=== PATIENT | male | born 1950 ===

== ENCOUNTER 2017-02-09 01:39 | Day surgery (SDC) | payer OTHER ==
[2017-02-09] VITALS (12 sets, daily range): BP systolic 111–139; BP diastolic 59–88
[~2017-02-09] VITALS: Ht 162.6 cm; Wt 73.0 kg
[~2017-02-09 01:39] MED LIST: ASPI81TA94 PO; ATOR40TA24 PO; CYCL10TA29 PO; FLUO-201 PO; GABA-549 PO; HYDR-4309 PO; METF-420 PO; SITA100T PO; TRAM-627 PO
[2017-02-09] MEDS ORDERED: LIDOCAINE/SOD BICARB 8.4% SYR ID ONE (06:00)
[2017-02-09] MEDS ORDERED: ceFAZolin(*) 2GM/D5W 50ML 50 ML IVPB ONE ×2 (06:00→12:15)
[2017-02-09] MEDS ORDERED: FAMOTIDINE 20 MG TAB PO ONE (06:00)
[2017-02-09] MEDS ORDERED: NORMOSOL R SOLN(*) 1000 ML BAG 1,000 ML IV PRN (06:00)
[2017-02-09] MEDS ORDERED: MIDAZOLAM 2 MG/2 ML VIAL IVP ONE (06:00)
[2017-02-09] MEDS ORDERED: fentaNYL CITR 250 MCG/5 ML AMP ONE (07:59)
[2017-02-09] MEDS ORDERED: PROPOFOL EMUL(*) 10MG/ML 20 ML 20 ML ONE (07:59)
[2017-02-09] MEDS ORDERED: ROCURONIUM BROM 10 MG/ML 10 ML ONE (07:59)
[2017-02-09] MEDS ORDERED: DEXAMETHASONE SOD 4 MG/ML VIAL ONE (07:59)
[2017-02-09] MEDS ORDERED: SUGAMMADEX SOD 200 MG/2 ML SDV ONE (07:59)
[2017-02-09] MEDS ORDERED: ONDANSETRON 4 MG/2 ML VIAL ONE (07:59)
[2017-02-09] MEDS ORDERED: LIDOCAINE MPF 1% 5 ML VIAL ONE (07:59)
[2017-02-09] MEDS ORDERED: BUPIVACAIN 0.25% INJ 50ML VIAL ONE (08:16)
[2017-02-09] MEDS ORDERED: THROMBIN (BOVINE) 20,000 UNIT VIAL ONE (08:16)
[2017-02-09] MEDS ORDERED: DEXAMETHASONE SOD 20MG/5 ML VL ONE (10:33)
--- NOTE | 2017-02-09 10:35 | RADIOLOGY IMAGING REPORT ---
[place] [facility] [place] Emery Guillory : 1950 MR: [id number] V: [id number] EXAM DATE: ORDERING PHYSICIAN: BERNA XIAO TECHNOLOGIST: Location: [facility] [place] Patient: Emery Guillory : 1950 Visit/Account:[id number] Date of Sevice: 02/09/2017 Exam type: LUMBAR SPINE 1 VIEW History: LUMBAR DISC HERNIATION L5-S1 Comparison: [place] lumbar spine November 23, 2016. Findings: A single prone crosstable lateral intraoperative view of the lower lumbar spine demonstrates metallic probes projecting between the posterior spinous processes of L3 and L4 and L4 and L5 IMPRESSION: 1. As above Report Dictated By: Patrizia Carlson MD at 02/09/2017 10:29 AM Report E-Signed By: Patrizia Carlson MD at 02/09/2017 10:31 AM WSN:[id number]
[2017-02-09] MEDS ORDERED: oxyCODONE HCL 5 MG CAP PO PRN (11:40)
[2017-02-09] MEDS ORDERED: BENZOCAINE/MENTHOL 1 EACH LOZG PO PRN (11:40)
[2017-02-09] MEDS ORDERED: diphenhydrAMINE 25 MG CAP PO PRN (11:40)
[2017-02-09] MEDS ORDERED: HYDROmorphone HCL 2 MG/ML SDV IVP PRN (11:40)
[2017-02-09] MEDS ORDERED: ONDANSETRON 4 MG/2 ML VIAL IVP PRN (11:40)
[2017-02-09] MEDS ORDERED: ACETAMINOPHEN 500 MG TAB PO PRN (11:40)
[2017-02-09] MEDS ORDERED: BISACODYL 10 MG SUPP PR PRN (11:40)
[2017-02-09] MEDS ORDERED: FLUSH 10 ML SYR IVP PRN (11:40)
[2017-02-09] MEDS ORDERED: ACETAMINOPHEN(*)1000 MG/100 ML 100 ML IVPB PRN (11:40)
[2017-02-09] MEDS ORDERED: APAP/HYDROCODONE 325/5 TAB PO PRN (11:40)
[2017-02-09] MEDS ORDERED: MAGNESIUM HYDROXIDE* 30ML UDCP PO PRN (11:40)
[2017-02-09] MEDS ORDERED: DIAZEPAM 5 MG TAB PO PRN (11:40)
[2017-02-09] MEDS ORDERED: DOCU240C84 PO (12:13)
[2017-02-09] MEDS ORDERED: DIA5 PO (12:14)
[2017-02-09] MEDS ORDERED: OXYC-865 PO (12:18)
[2017-02-09] MEDS ORDERED: oxyCODONE/ACETAMIN 5/325MG TH 2 TAB/BOTTLE ONE (13:47)
--- NOTE | 2017-02-09 16:04 | OPERATIVE REPORT 1 ---
EVENT DATE: February 09, 2017 SURGEON: Torito Alex MD ANESTHESIOLOGIST: Usman Hansen MD ANESTHESIA: General endotracheal anesthesia. BEER MERCHANT: MIC Hurst PREOPERATIVE DIAGNOSIS Left greater than right S1 radicular symptoms secondary to spinal stenosis. POSTOPERATIVE DIAGNOSIS Left greater than right S1 radicular symptoms secondary to spinal stenosis. PROCEDURE PERFORMED Bilateral L5-S1 laminoforaminotomy and lateral recess decompression. INTRAVENOUS FLUIDS 800 mL ESTIMATED BLOOD LOSS 25 mL IMPLANTS USED None. SPECIMENS None. DRAINS None. COMPLICATIONS None. DISPOSITION Postanesthesia care unit. INDICATIONS FOR SURGERY Mr. Guillory is a 66-year-old gentleman who presented with left greater than right radiating pain, numbness, and tingling down the posterior buttock, posterior thigh, posterior calf, and into the lateral and plantar aspects of the foot. He had had significant complications with previous injection therapy and had also failed physical therapy, activity modifications, and medication. His physical examination was essentially normal apart from a straight leg raising test being positive on the left and equivocal on the right. His imaging studies showed lateral recess and foraminal narrowing at the L5-S1 level , left greater than right. Secondary to ongoing symptoms, he was offered and elected to undergo bilateral L5-S1 laminoforaminotomy. Prior to surgery, I explained in detail to the patient the possible risks of surgery, including the risk of nerve injury, persistent and/or worsening pain, spinal fluid leak, infection and/or meningitis, excessive bleeding, paralysis, , blindness, sexual dysfunction, autonomic nervous system dysfunction, blood vessel injury, injury to neighboring organs, need for further surgery, bowel and bladder dysfunction, disability, unforeseen medical and surgical complications, and understanding in general spinal surgery is more predictive of improving extremity discomfort than axial spine pain and arresting the progression of spinal cord dysfunction rather than improving it with stress. DESCRIPTION OF OPERATION On the date of surgery, the patient was met in the preoperative hold area, and all questions were answered. The operative site was identified and marked by myself. The patient was then taken to the operating room, and after identification of the patient and the operative site, administration of antibiotics, and completion of anesthesia, the patient was prepped and draped in the prone position on a Pranav table. During the time of the entire operation, care was taken to maintain appropriate perfusion pressures during anesthesia. All bony protuberances and soft tissues were well padded in the standard fashion. Preoperative antibiotics were administered according to the appropriate timing schedule. At the conclusion of the procedure, the sponge and needle counts were correct times two. The skin was prepped with DuraPrep. An 18-gauge spinal needle was placed on the L5 spinous process with a 20-gauge spinal needle placed on the L4 spinous process. A lateral radiograph confirmed appropriate positioning of the needles. The needles were then withdrawn, and the wound was prepped and draped again in the standard sterile orthopedic fashion. A final timeout was undertaken by members of the operating team to confirm correct patient, correct level, and correct surgery. An incision was then made in the skin over the intended surgical levels, and dissection carried down through the subcutaneous tissue to the level of the deep fascia. The deep fascia was elevated off the posterior elements at L5 and S1 in a subperiosteal manner. On the left side at the L5-S1 level, a Goldberg retractor was placed. A curette was used to remove in a subperiosteal manner the attachment of the ligamentum flavum from the undersurface of the superior lamina. The ligamentum flavum was dissected free of its attachment to the pars interarticularis, the medial articular facet, and the inferior lamina. Minimal bone was removed using a 3 mm Kerrison punch to expose the lateral dura and traversing nerve root as well as to allow palpation of the pedicle and neural foramen. The shoulder of the traversing nerve root was mobilized, and the lateral recess was decompressed using a 3 mm Kerrison punch. A foraminotomy was similarly performed. A [place] elevator was used to ensure that the S1 nerve root was completely decompressed both in the lateral recess and the foramen. Attention was then turned to the right side. A Goldberg retractor was placed at L5-S1 on the right, and again a curette was used to remove the ligamentum flavum from the superior inferior lamina as well as the medial border of the facet. The nerve root was mobilized, and the 3.0 Kerrison punch was used to decompress the lateral recess and the foramen on the right. Meticulous hemostasis was obtained. We then placed 0.5 mL of Decadron for a total of 2 mg in the laminoforaminotomy defect both on the right and the left. The nerve was bathed in the steroid. The wound was then closed in layers using interrupted sutures for the deep fascia, inverted interrupted sutures for the subcutaneous tissue, and then a running subcuticular skin stitch. Sponge and instrument counts were correct times two. POSTOPERATIVE CARE PLAN Mr. Guillory will remain in the hospital until he meets discharge criteria later today. He will then be discharged home with instructions to follow up in two weeks' time for wound check and examination. LADAN
[2017-02-09] MEDS ORDERED: DOCUSATE SODIUM 100 MG CAP PO SCH (21:00)
== END 2017-02-09 11:57 | disposition home or self-care (01) ==
LOC: OR 01:39
PROVIDERS: ATTEND Orthopaedic Surgery
DX: M48.07 Spinal stenosis, lumbosacral region (principal); E11.9 Type 2 diabetes mellitus without complications
CPT/HCPCS: 36415; 36416; 63047; 72020; 82948; 86850; 86900; 86901; 94667; 97161; J1100; J2001; J2250; J2405; J2704; J3010; J3490; J0690

== ENCOUNTER 2018-06-11 00:51 | Inpatient (IN) | payer MEDICARE, BC ==
[2018-06-11] VITALS (13 sets, daily range): BP systolic 88–101; BP diastolic 56–65; Ht 165.1 cm; Wt 74.8 kg
[~2018-06-11] VITALS: Ht 165.1 cm; Wt 74.8 kg
[~2018-06-11 00:51] MED LIST changes: +DIA5 PO; +DOCU240C84 PO; -HYDR-4309 PO; +HYDR-653 PO; -METF-420 PO; +METF-452 PO; +OXYC-865 PO
--- NOTE | 2018-06-11 01:07 | ER Report ---
History and Physical Time Seen By MD: 01:07 Hx. of Stated Complaint: WEAKNESS AND FEVER STARTING THIS AFTERNOON HPI/ROS CHIEF COMPLAINT: fever and weakness HISTORY OF PRESENT ILLNESS: This is a 67 year old male. He has been having fevers this evening and has been having chills all day. Mild cough. Found to by hypoxic during triage. He has a history of past stroke with right sided weakness and difficulty speaking. This seems worse tonight. No diarrhea. No complaints of pain. No trouble with urination. No trouble with aspiration or swallowing with the past stroke. Allergies: Coded Allergies: No Known Drug Allergies (Unverified , 06/11/18) Home Meds Reported Medications Gabapentin (GABAPENTIN) 300 Mg Capsule, 100 MG PO BID, CAPSULE 06/11/18 Levetiracetam (LEVETIRACETAM) 1,000 Mg Tablet, 1500 MG PO BID, TAB 06/11/18 Atorvastatin Calcium (LIPITOR) 40 Mg Tablet, 1 TAB PO QDAY, TAB 12/31/15 Sitagliptin Phosphate (JANUVIA) 100 Mg Tablet, 100 MG PO QDAY 12/31/15 Discontinued Reported Medications Oxycodone Hcl/Acetaminophen (PERCOCET 5-325 MG TABLET) 1 Each Tablet, 1 EACH PO PRN for PAIN, #49 TAB 02/09/17 Diazepam (VALIUM) 5 Mg Tablet, 5 MG PO Q8H PRN for SPASMS, #25 TAB 02/09/17 Docusate Calcium (SURFAK) 240 Mg Capsule, 240 MG PO DAILY, #9 CAPSULE 02/09/17 Aspirin (ASPIRIN) 81 Mg Tab.chew, 81 MG PO QDAY, TAB.CHEW 02/03/17 Metformin Hcl (METFORMIN HCL) 1,000 Mg Tablet, 1 TAB PO BID, TAB 12/30/15 Reviewed Nurses Notes: Yes Hx Smoking: Yes (1 ppd x 15 years) Smoking Status: Former Smoker Hx Substance Use Disorder: No Hx Alcohol Use: No Constitutional Vital Sign - Last 24 Hours 06/11/18 06/11/18 06/11/18 06/11/18 00:51 00:57 00:58 01:00 Temp 103.1 Pulse ??? 120 Resp 17 B/P (MAP) 131/78 131/78 (95) 129/85 (100) Pulse Ox 86 O2 Delivery Room Air 06/11/18 06/11/18 06/11/1821/19 01:21 01:30 01:51 01:56 Pulse 119 113 114 B/P (MAP) 122/84 (97) Pulse Ox 90 93 92 06/11/18 06/11/18 06/11/18 06/11/18 02:00 02:26 02:31 02:39 Temp 99.9 Pulse 72 78 B/P (MAP) 127/72 (90) Pulse Ox 93 92 06/11/18 06/11/18 06/11/18 06/11/18 02:41 03:00 03:01 03:30 Temp 99.9 Pulse 107 B/P (MAP) 111/70 (84) 110/71 (84) Pulse Ox 89 06/11/18 06/11/18 03:31 03:36 Pulse 103 100 Pulse Ox 91 91 Intake and Output 06/10/18 06/10/18 06/11/18 14:59 22:59 06:59 Intake Total 2000 ml Balance 2000 ml Physical Exam General Appearance: The patient is alert. No acute distress. Eyes: Pupils are equal, round. No pallor, injection or icterus. ENT: Mucous membranes are moist. Normal oral mucosa. Posterior oropharynx is normal. Normal tympanic membranes and canals. Neck: Supple and non tender. No lymphadenopathy. Respiratory: Lungs are diminished, no rales or wheezing noted. Weak nonproductive cough present. There are no retractions or accessory muscle use. Cardiovascular: Tachycardia, but regular rhythm. No murmurs, gallops or rubs. Gastrointestinal: Abdomen is soft and non tender. Nondistended. Normal active bowel sounds. Neurological: Alert and oriented x3. Skin: Warm and dry. No rashes. DIFFERENTIAL DIAGNOSIS: After history and physical exam, differential diagnosis was considered for adult patient with fever and hypoxia with a weak cough, likely pulmonary infectious process such as virus, influenza, pneumonia. Medical Decision Making Data Points Result Diagram: 06/11/18 0110 06/11/18 0110 Laboratory Hematology Test 06/11/18 01:01 06/11/18 01:10 Influenza Virus Type A (PCR) Negative (NEGATIVE) Influenza Virus Type B (PCR) Negative (NEGATIVE) Red Blood Count 5.78 M/uL (4.00-5.60) Mean Corpuscular Volume 86.0 fL (80.0-96.0) Mean Corpuscular Hemoglobin 29.5 pg (26.0-33.0) Mean Corpuscular Hemoglobin Concent 34.4 g/dL (32.0-36.0) Red Cell Distribution Width 13.9 % (11.5-14.5) Mean Platelet Volume 8.7 fL (7.2-11.1) Neutrophils (%) (Auto) 87.8 % (39.4-72.5) Lymphocytes (%) (Auto) 8.7 % (17.6-49.6) Monocytes (%) (Auto) 2.9 % (4.1-12.4) Eosinophils (%) (Auto) 0.3 % (0.4-6.7) Basophils (%) (Auto) 0.3 % (0.3-1.4) Nucleated RBC Relative Count (auto) 0.5 /100WBC Neutrophils # (Auto) 12.1 K/uL (2.0-7.4) Lymphocytes # (Auto) 1.2 K/uL (1.3-3.6) Monocytes # (Auto) 0.4 K/uL (0.3-1.0) Eosinophils # (Auto) 0.0 K/uL (0.0-0.5) Basophils # (Auto) 0.0 K/uL (0.0-0.1) Nucleated RBC Absolute Count (auto) 0.07 K/uL Sodium Level 137 mmol/L (137-145) Potassium Level 4.0 mmol/L (3.5-5.0) Chloride Level 101 mmol/L (98-107) Carbon Dioxide Level 25 mmol/L (22-30) Blood Urea Nitrogen 14 mg/dl (9-21) Creatinine 1.00 mg/dl (0.66-1.25) Glomerular Filtration Rate Calc > 60.0 Random Glucose 130 mg/dl (75-110) Lactate 2.1 mmol/L (0.7-2.1) Calcium Level 9.9 mg/dl (8.4-10.2) Total Bilirubin 1.4 mg/dl (0.2-1.3) Aspartate Amino Transf (AST/SGOT) 31 U/L (0-35) Alanine Aminotransferase (ALT/SGPT) 50 U/L (0-56) Alkaline Phosphatase 78 U/L (0-126) Total Protein 8.1 g/dl (6.3-8.2) Albumin 4.7 g/dl (3.5-5.0) Chemistry Test 06/11/18 01:01 06/11/18 01:10 Influenza Virus Type A (PCR) Negative (NEGATIVE) Influenza Virus Type B (PCR) Negative (NEGATIVE) White Blood Count 13.8 k/uL (4.5-11.0) Red Blood Count 5.78 M/uL (4.00-5.60) Hemoglobin 17.1 g/dL (14.0-18.0) Hematocrit 49.7 % (42.0-52.0) Mean Corpuscular Volume 86.0 fL (80.0-96.0) Mean Corpuscular Hemoglobin 29.5 pg (26.0-33.0) Mean Corpuscular Hemoglobin Concent 34.4 g/dL (32.0-36.0) Red Cell Distribution Width 13.9 % (11.5-14.5) Platelet Count 117 K/uL (150-450) Mean Platelet Volume 8.7 fL (7.2-11.1) Neutrophils (%) (Auto) 87.8 % (39.4-72.5) Lymphocytes (%) (Auto) 8.7 % (17.6-49.6) Monocytes (%) (Auto) 2.9 % (4.1-12.4) Eosinophils (%) (Auto) 0.3 % (0.4-6.7) Basophils (%) (Auto) 0.3 % (0.3-1.4) Nucleated RBC Relative Count (auto) 0.5 /100WBC Neutrophils # (Auto) 12.1 K/uL (2.0-7.4) Lymphocytes # (Auto) 1.2 K/uL (1.3-3.6) Monocytes # (Auto) 0.4 K/uL (0.3-1.0) Eosinophils # (Auto) 0.0 K/uL (0.0-0.5) Basophils # (Auto) 0.0 K/uL (0.0-0.1) Nucleated RBC Absolute Count (auto) 0.07 K/uL Glomerular Filtration Rate Calc > 60.0 Lactate 2.1 mmol/L (0.7-2.1) Calcium Level 9.9 mg/dl (8.4-10.2) Total Bilirubin 1.4 mg/dl (0.2-1.3) Aspartate Amino Transf (AST/SGOT) 31 U/L (0-35) Alanine Aminotransferase (ALT/SGPT) 50 U/L (0-56) Alkaline Phosphatase 78 U/L (0-126) Total Protein 8.1 g/dl (6.3-8.2) Albumin 4.7 g/dl (3.5-5.0) EKG/Imaging Imaging PORTABLE CHEST: Indication: Fever. Technique: A single frontal film was obtained. Comparison: None available. Skeletal and soft tissue structures: Intact and unremarkable. Heart and mediastinum: Within normal limits. Lung arredondo: Well-expanded. There appear to be diffuse increased interstitial markings. No focal consolidation or volume loss is identified. Pleural spaces: Unremarkable. Impression: No acute process is clearly identified. Report Dictated By: Lázaro Moscoso MD at 06/11/2018 1:[address] CTA CHEST W CON HISTORY: Fever. Hypoxia. COMPARISON: Chest x-ray earlier same day. No prior CT. TECHNIQUE: Pulmonary embolus protocol - Thin-slice axial imaging of the chest was performed during maximal pulmonary arterial opacification with intravenous nonionic iodinated contrast. 3D coronal slab MIPs and 2D reconstructions in the coronal and sagittal planes were performed to aid in pulmonary embolus detection. Dial Maker images have been stored on PACS. One of the following dose optimization techniques was utilized in the performance of this exam: Automated exposure control; adjustment of the mA and/or kV according to the patient's size; or use of an iterative reconstruction technique. Specific details can be referenced in the facility's radiology CT e xam operational policy. CONTRAST: 75 mL of IV Isovue-370. FINDINGS: Pulmonary arteries: There is adequate opacification of the pulmonary arteries to the segmental branches. There are no filling defects in the visible pulmonary arteries. Thoracic inlet: Normal. Aorta: The ascending aorta measures 4.3 x 4.2 cm (sagittal image 61 and coronal image 47). No dissection. There is mild atherosclerosis of the aorta. Heart / Pericardium: The heart is normal. There is no ventricular septal rl ation. There is no pericardial effusion. There is mild coronary artery calcification. Mediastinum / Ashley: Normal mediastinum. No lymphadenopathy. Lungs / Pleura: No pleural effusion. There is patchy opacity in the lingula. There is mild atelectasis in the lower lobes. There is 1.3 cm lung cyst in the left lower lobe. No pneumothorax. The airways are normal. Upper abdomen: There is a large exophytic cyst arising from the right kidney. Musculoskeletal/vertebra/body wall: There is mild concave deformity of the superior endplate of T9 that does not appear acute. There is a vacuum cleft at T8-9. The remainder of the vertebral body heights are maintained. IMPRESSION: 1. No pulmonary embolism. 2. Patchy opacity in the lingula. Given history, likely pneumonia. 3. Ascending aorta measures 4.3 x 4.2 cm. 4. Coronary artery calcification. Report Dictated By: Meeta Wolfe at 06/11/2018 2:55 AM ED Course/Re-evaluation Clinical Indication for ER IV: Hydration, IV Access ED Course An IV was started, blood work obtained. The patient was given a liter of normal saline. He started to respond a little bit better after this liter of saline was given. Initial x-ray showed some haziness but no definitive evidence for pneumonia however with his fevers and chills and hypoxia was felt this was still the most likely diagnosis. CT angiogram of the chest was obtained which did show a lingular lobe pneumonia. We gave a second liter of normal saline and were eventually able to obtain a urinalysis and then the patient was started on Rocephin and a azithromycin. I discussed the case with the hospitalist who accepted the patient for admission. Decision to Disposition Date: Jun 11, 2018 Decision to Disposition Time: 03:44 Depart Departure Latest Vital Signs Vital Signs Date Time Temp Pulse Resp B/P (MAP) Pulse Ox O2 Delivery O2 Flow Rate FiO2 06/11/18 03:36 100 91 06/11/18 03:30 110/71 (84) 06/11/18 02:41 99.9 06/11/18 00:57 17 Room Air Impression: Primary Impression: Pneumonia Condition: Improved Disposition: HOME OR SELF-CARE Problem Qualifiers Primary Impression: Pneumonia Pneumonia type: due to unspecified organism Laterality: left Lung location: lower lobe of lung Qualified Codes: J18.1 - Lobar pneumonia, unspecified organism QUE DOWNEY MD Jun 11, 2018 01:07
[2018-06-11] MEDS ORDERED: NS(*) 0.9% 1000 ML BAG 1,000 ML IV ONE ×2 (01:10→03:35)
[2018-06-11] MEDS ORDERED: ACETAMINOPHEN 500 MG TAB PO ONE (01:15)
[2018-06-11 01:32] LABS: PLATELET COUNT, AUTOMATED 117 K/uL (150-450)
[2018-06-11] MEDS ORDERED: GABA-549 PO (01:51)
[2018-06-11] MEDS ORDERED: LEVE100034 PO (01:51)
--- NOTE | 2018-06-11 01:56 | RADIOLOGY IMAGING REPORT ---
[place] [facility] [place]: Emery Guillory : 1950 MR: [id number] V: [id number] EXAM DATE: ORDERING PHYSICIAN: QUE DOWNEY TECHNOLOGIST: Location: [facility] [place] Patient: Emery Guillory : 1950 Visit/Account:[id number] Date of Sevice: 06/11/2018 PORTABLE CHEST: Indication: Fever. Technique: A single frontal film was obtained. Comparison: None available. Skeletal and soft tissue structures: Intact and unremarkable. Heart and mediastinum: Within normal limits. Lung arredondo: Well-expanded. There appear to be diffuse increased interstitial markings. No focal cons olidation or volume loss is identified. Pleural spaces: Unremarkable. Impression: No acute process is clearly identified. Report Dictated By: Lázaro Moscoso MD at 06/11/2018 1:50 AM Report E-Signed By: Lázaro Moscoso MD at 06/11/2018 1:51 AM WSN:[id number]
[2018-06-11] MEDS ORDERED: NS(*) 0.9% 50 ML BAG 50 ML ONE (02:14)
[2018-06-11] MEDS ORDERED: IOPAMIDOL 76% 150 ML INFUS BTL 150 ML ONE (02:14)
--- NOTE | 2018-06-11 03:21 | RADIOLOGY IMAGING REPORT ---
[place] [facility] [place] Emery Guillory : 1950 MR: [id number] V: [id number] EXAM DATE: ORDERING PHYSICIAN: QUE DOWNEY TECHNOLOGIST: Location: [facility] [place] Patient: Emery Guillory : 1950 Visit/Account:[id number] Date of Sevice: 06/11/2018 CT CTA CHEST W CON HISTORY: Fever. Hypoxia. COMPARISON: Chest x-ray earlier same day. No prior CT. TECHNIQUE: Pulmonary embolus protocol - Thin-slice axial imaging of the chest was performed during ma ximal pulmonary arterial opacification with intravenous nonionic iodinated contrast. 3D coronal slab MIPs and 2D reconstructions in the coronal and sagittal planes were performed to aid in pulmonary emb olus detection. Block Breaker images have been stored on PACS. One of the following dose optimization techniques was utilized in the performance of this exam: Autom ated exposure control; adjustment of the mA and/or kV according to the patient's size; or use of an i terative reconstruction technique. Specific details can be referenced in the facility's radiology CT exam operational policy. CONTRAST: 75 mL of IV Isovue-370. FINDINGS: Pulmonary arteries: There is adequate opacification of the pulmonary arteries to the segmental branch es. There are no filling defects in the visible pulmonary arteries. Thoracic inlet: Normal. Aorta: The ascending aorta measures 4.3 x 4.2 cm (sagittal image 61 and coronal image 47). No dissect ion. There is mild atherosclerosis of the aorta. Heart / Pericardium: The heart is normal. There is no ventricular septal deviation. There is no peric ardial effusion. There is mild coronary artery calcification. Mediastinum / Ashley: Normal mediastinum. No lymphadenopathy. Lungs / Pleura: No pleural effusion. There is patchy opacity in the lingula. There is mild atelectasi s in the lower lobes. There is 1.3 cm lung cyst in the left lower lobe. No pneumothorax. The airways are normal. Upper abdomen: There is a large exophytic cyst arising from the right kidney. Musculoskeletal/vertebra/body wall: There is mild concave deformity of the superior endplate of T9 th at does not appear acute. There is a vacuum cleft at T8-9. The remainder of the vertebral body height s are maintained. IMPRESSION: 1. No pulmonary embolism. 2. Patchy opacity in the lingula. Given history, likely pneumonia. 3. Ascending aorta measures 4.3 x 4.2 cm. 4. Coronary artery calcification. Report Dictated By: Meeta Wolfe at 06/11/2018 2:55 AM Report E-Signed By: Meeta Wolfe at 06/11/2018 3:05 AM WSN:[id number]
[2018-06-11] MEDS ORDERED: cefTRIAXone(*) 1 GM VIAL 1 GM in NS(*) 0.9% 100 ML MINI-BAG 100 ML IVPB ONE (03:35)
[2018-06-11] MEDS ORDERED: AZITHROMYCIN(*) 500 MG 500 MG in NS(*) 0.9% 250 ML BAG 250 ML IVPB ONE (03:35)
[2018-06-11] MEDS ORDERED: ACETAMINOPHEN 325 MG TAB PO PRN (05:35)
[2018-06-11] MEDS ORDERED: INFLUENZA VIRUS VAC 0.5ML SYR IM ONLY ONE (05:35)
[2018-06-11] MEDS: NS(*) 0.9% 1000 ML BAG 1,000 ML IV PRN ×3 (05:48→21:30)
[2018-06-11] MEDS ORDERED: NS(*) 0.9% 500 ML BAG 500 ML IV ONE (06:05)
[2018-06-11] MEDS ORDERED: LEVE500T9 PO (06:09)
[2018-06-11] MEDS ORDERED: METF-452 PO (06:10)
[2018-06-11] MEDS ORDERED: MULT1CAP59 PO (06:10)
[2018-06-11] MEDS ORDERED: CHOL500050 PO (06:10)
[2018-06-11] MEDS ORDERED: ASPI-1471 PO (06:10)
[2018-06-11] MEDS ORDERED: GABA-547 PO (06:10)
[2018-06-11] MEDS ORDERED: INSULIN HUM LISPRO 100 UN/ML 3 ML VIAL SUBQ PRN (06:20)
--- NOTE | 2018-06-11 06:43 | History & Physical ---
History of Present Illness Chief Complaint Fever, chills. History of Present Illness The patient is a 67 year old male with PMH significant for type II DM and CVA with resultant R hemiplegia and expressive aphasia who presents with fever and chills since yesterday. Most of the history is taken from the patient's . The patient understands well but has an expressive aphasia. The patient and his are from [place], [place]. They are in [place] visiting their kids for [facility]. The patient's noticed he didn't have as much energy as usual over the past 2 days. His appetite was also not quite as good. He did have a very mild cough. Yesterday he also felt cold all day and went to bed early. He then developed a shaking chill and fever. He was transported to [facility] for evaluation. History Problems: (1) CVA, old, hemiparesis Status: Chronic Comment: Expressive aphasia also. (2) COPD (chronic obstructive pulmonary disease) Status: Chronic (3) Seizure disorder as sequela of cerebrovascular accident Status: Chronic (4) Hx-TIA (transient ischemic attack) (5) HTN (hypertension) Status: Chronic (6) Type II diabetes mellitus Status: Chronic (7) S/P carpal tunnel release (8) S/P rotator cuff repair Home Meds Reported Medications Aspirin (ASPIR 81) 81 Mg Tablet.dr, 81 MG PO QDAY, TAB 06/11/18 Multivitamin (MULTIVITAMINS) 1 Each Capsule, 1 EACH PO DAILY, CAPSULE 06/11/18 Cholecalciferol (Vitamin D3) (Vitamin D) 50,000 Unit Capsule, 1 INTLU PO QWEEK 06/11/18 Metformin Hcl (METFORMIN HCL) 1,000 Mg Tablet, 1 TAB PO BID, TAB 06/11/18 Gabapentin (GABAPENTIN) 100 Mg Capsule, 100 MG PO BID, CAPSULE 06/11/18 Levetiracetam (LEVETIRACETAM) 500 Mg Tab.er.24h, 1500 MG PO BID, TAB 06/11/18 Atorvastatin Calcium (LIPITOR) 40 Mg Tablet, 1 TAB PO QDAY, TAB 12/31/15 Sitagliptin Phosphate (JANUVIA) 100 Mg Tablet, 100 MG PO QDAY 12/31/15 Discontinued Reported Medications Gabapentin (GABAPENTIN) 300 Mg Capsule, 100 MG PO BID, CAPSULE 4/21/19 Levetiracetam (LEVETIRACETAM) 1,000 Mg Tablet, 1500 MG PO BID, TAB 06/11/18 Oxycodone Hcl/Acetaminophen (PERCOCET 5-325 MG TABLET) 1 Each Tablet, 1 EACH PO PRN for PAIN, #49 TAB 02/09/17 Diazepam (VALIUM) 5 Mg Tablet, 5 MG PO Q8H PRN for SPASMS, #25 TAB 02/09/17 Docusate Calcium (SURFAK) 240 Mg Capsule, 240 MG PO DAILY, #9 CAPSULE 02/09/17 Aspirin (ASPIRIN) 81 Mg Tab.chew, 81 MG PO QDAY, TAB.CHEW 02/03/17 Metformin Hcl (METFORMIN HCL) 1,000 Mg Tablet, 1 TAB PO BID, TAB 12/30/15 Allergies: Coded Allergies: No Known Drug Allergies (Unverified , 06/11/18) Patient History: FH: CAD (coronary artery disease) MOTHER FH: atrial fibrillation BROTHER OR SISTER FH: breast cancer BROTHER OR SISTER FH: cancer FH: type 2 diabetes MOTHER Hx Smoking: Yes Smoking Status: Former Smoker (Quit smoking 30 years ago.) Caffeine Intake: Coffee Caffeine/Cups Per Day: 4 CUPS A DAY Hx Alcohol Use: No Hx Substance Use Disorder: No Social Drug Use: Never History of IV Drug Use: No Review of Systems All Systems Reviewed/Normal: Yes, Except as Noted Constitutional: Fever, Chills Neurological: Weakness, Other (Expressive aphasia. R hemiparesis.) Respiratory: Shortness of Breath, Cough Gastrointestinal: No Nausea, No Vomiting; Other (Decreased appetite.) Musculoskeletal: Pain (Neuropathy.) Exam Vital Signs Vital Signs Date Time Temp Pulse Resp B/P (MAP) Pulse Ox O2 Delivery O2 Flow Rate FiO2 06/11/18 06:02 89/63 (72) 06/11/18 05:39 94 Nasal Cannula 2.0 06/11/18 05:13 89 06/11/18 04:55 99.0 20 General Appearance: Alert, Awake, No Acute Distress Neuro: Other (Expressive aphasia. Understands perfectly. Can say short, one work answers such as yes or no.) Eyes: PERRLA Cardiovascular: Regular Rate and Rhythm GI: Abd Soft and Non-Tender Extremities: Warm, Perfused, Other (No edema.) Integumentary: Skin Intact without Lesion / Mass Psych: Appropriate Mood & Affect Medical Decision Making Data Points Result Diagram: 06/11/18 0110 06/11/18 011 Item Value Date Time Lactate 2.1 mmol/L 06/11/18 011 Calcium Level 9.9 mg/dl 06/11/18 011 Total Bilirubin 1.4 mg/dl H 06/11/18 0110 Aspartate Amino Transf (AST/SGOT) 31 U/L 06/11/18 0110 Alanine Aminotransferase (ALT/SGPT) 50 U/L 06/11/18 011 Alkaline Phosphatase 78 U/L 06/11/18 0110 Total Protein 8.1 g/dl 06/11/18 011 Albumin 4.7 g/dl 06/11/18 011 Urine Color Yellow 06/11/18 0400 Urine Clarity Clear 06/11/18 0400 Urine pH 5.0 pH 06/11/18 0400 Urine Specific Franklin 1.060 06/11/18 0400 Urine Protein Negative mg/dL 06/11/18 0400 Urine Glucose (UA) Negative mg/dL 06/11/18 0400 Urine Ketones Trace mg/dL 06/11/18 0400 Urine Blood Negative 06/11/18 0400 Urine Nitrite Negative 06/11/18 0400 Urine Bilirubin Negative 06/11/18 0400 Urine Urobilinogen Negative mg/dL 06/11/18 0400 Urine Leukocyte Esterase Negative 06/11/18 0400 Urine RBC 1 /HPF 06/11/18 0400 Urine WBC <1 /HPF 06/11/18 0400 Urine Squamous Epithelial Cells None /LPF 06/11/18 0400 Urine Transitional Epithelial Cells Few /LPF 06/11/18 0400 Urine Bacteria Negative /HPF 06/11/18 0400 Urine Mucus None /HPF 06/11/18 0400 Influenza Virus Type A (PCR) Negative 06/11/18 0101 Influenza Virus Type B (PCR) Negative 06/11/18 010 Blood cultures pending. EKG / Imaging Monitor Interpretation: Normal Sinus Rhythm Imaging FACILITY: [facility] [place] PATIENT NAME: Emery Guillory : 1950 MR: [id number] V: [id number] EXAM DATE: ORDERING PHYSICIAN: QUE DOWNEY TECHNOLOGIST: Location: [facility] [place] Patient: Emery Guillory : 1950 Visit/Account:[id number] Date of Sevice: 06/11/2018 CT CTA CHEST W CON HISTORY: Fever. Hypoxia. COMPARISON: Chest x-ray earlier same day. No prior CT. TECHNIQUE: Pulmonary embolus protocol - Thin-slice axial imaging of the chest was performed during maximal pulmonary arterial opacification with intravenous nonionic iodinated contrast. 3D coronal slab MIPs and 2D reconstructions in the coronal and sagittal planes were performed to aid in pulmonary embolus detection. [employer] images have been stored on PACS. One of the following dose optimization techniques was utilized in the performance of this exam: Automated exposure control; adjustment of the mA and/or kV according to the patient's size; or use of an iterative reconstruction technique. Specific details can be referenced in the facility's radiology CT exam operational policy. CONTRAST: 75 mL of IV Isovue-[id number]. FINDINGS: Pulmonary arteries: There is adequate opacification of the pulmonary arteries to the segmental branches. There are no filling defects in the visible pulmonary arteries. Thoracic inlet: Normal. Aorta: The ascending aorta measures 4.3 x 4.2 cm (sagittal image 61 and coronal image 47). No dissection. There is mild atherosclerosis of the aorta. Heart / Pericardium: The heart is normal. There is no ventricular septal deviation. There is no pericardial effusion. There is mild coronary artery calcification. Mediastinum / Ashley: Normal mediastinum. No lymphadenopathy. Lungs / Pleura: No pleural effusion. There is patchy opacity in the lingula. There is mild atelectasis in the lower lobes. There is 1.3 cm lung cyst in the left lower lobe. No pneumothorax. The airways are normal. Upper abdomen: There is a large exophytic cyst arising from the right kidney. Musculoskeletal/vertebra/body wall: There is mild concave deformity of the superior endplate of T9 that does not appear acute. There is a vacuum cleft at T8-9. The remainder of the vertebral body heights are maintained. IMPRESSION: 1. No pulmonary embolism. 2. Patchy opacity in the lingula. Given history, likely pneumonia. 3. Ascending aorta measures 4.3 x 4.2 cm. 4. Coronary artery calcification. Report Dictated By: Meeta Wolfe at 06/11/2018 2:55 AM Report E-Signed By: Meeta Wolfe at 06/11/2018 3:05 AM [id number] Pre-Admit Course Medical Record Review: No Assessment and Plan Problems: (1) Pneumonia Status: Acute Assessment & Plan: Will admit to the medical floor. Aggressive fluid resuscitation. Continue azithromycin and ceftriaxone. Blood cultures pending. Not wheezing so steroids and nebulizers were not ordered. Continue O2 to keep saturations 90% or greater. Not on O2 at home. (2) Seizure disorder as sequela of cerebrovascular accident Status: Chronic Assessment & Plan: Continue Keppra 1500mg bid. (3) Type II diabetes mellitus Status: Chronic Assessment & Plan: Hold metformin. Continue Januvia 100mg daily. Add SSI level 1 prn. Diabetic diet. (4) CVA, old, hemiparesis Status: Chronic Assessment & Plan: The patient had an embolic CVA in 2016. He is on a baby ASA for secondary prevention. He had a TIA in 2018 without sequelae. He is on atorvastatin as well. He has expressive aphasia but understands perfectly. He has R hemiparesis. (5) COPD (chronic obstructive pulmonary disease) Status: Chronic Assessment & Plan: Not on treatment currently. Quit smoking 30 years ago. (6) HTN (hypertension) Status: Chronic Assessment & Plan: Not currently on treatment. Time Spent on Plan of Care: < 30 min Venous Thromboembolism Antithrombotics Is Pt On Any Antithrombotics?: Yes Exam Sepsis Risk: Possible Sepsis Risk Problem Qualifiers (1) Pneumonia: Pneumonia type: due to unspecified organism Laterality: left Lung location: lower lobe of lung Qualified Codes: J18.1 - Lobar pneumonia, unspecified organism MENA VALDIVIA MD Jun 11, 2018 06:43
[2018-06-11] MEDS: GABAPENTIN 100 MG CAP PO SCH ×2 (09:27→21:30)
[2018-06-11] MEDS: ASPIRIN 81 MG ENTERIC COATED PO SCH (09:28)
[2018-06-11] MEDS: levETIRAcetam 500 MG TAB PO SCH ×2 (09:28→21:30)
[2018-06-11] MEDS: ATORVASTATIN 40 MG TAB PO SCH (09:28)
[2018-06-11] MEDS: ENOXAPARIN 40 MG/0.4ML SYR SC SCH (09:29)
[2018-06-12 04:00] VITALS: BP 111/69
[2018-06-12] MEDS ORDERED: cefTRIAXone(*) 1 GM VIAL 1 GM in NS(*) 0.9% 100 ML MINI-BAG 100 ML IVPB SCH (04:00)
[2018-06-12] MEDS ORDERED: AZITHROMYCIN(*) 500 MG 500 MG in NS(*) 0.9% 250 ML BAG 250 ML IVPB SCH (04:30)
[2018-06-12 06:07] LABS: PLATELET COUNT, AUTOMATED 81 K/uL (150-450)
[2018-06-12 06:47] VITALS: BP 109/68
[2018-06-12] MEDS: NS(*) 0.9% 1000 ML BAG 1,000 ML IV PRN (07:07)
[2018-06-12] MEDS: levETIRAcetam 500 MG TAB PO SCH (08:30)
[2018-06-12] MEDS: ASPIRIN 81 MG ENTERIC COATED PO SCH (08:30)
[2018-06-12] MEDS: ATORVASTATIN 40 MG TAB PO SCH (08:30)
[2018-06-12] MEDS: GABAPENTIN 100 MG CAP PO SCH (08:30)
[2018-06-12] MEDS: ENOXAPARIN 40 MG/0.4ML SYR SC SCH (08:31)
--- NOTE | 2018-06-12 09:01 | NUR ---
Physical Therapy Impression PT/OT co vito complete. Pt with R) side hemiparesis at baseline with aphasia as well d/t a CVA. Pt's spouse present for evaluation, reports pt is at baseline level of functional mobility today. Pt is Benita for bed mobility, transfers and ambulation x150' with RW. Pt is SBA for asc/desc 1 stair with railing and SPC. Pt and spouse report no further concerns at this time, and decline further services upon d/c. No further PT visits planned at this time. Physical Therapy Goals 1: Pt to complete bed mobility with Benita 2: Pt to complete transfers with Benita and SPC 3: Pt to ambulate 150' with Benita and SPC 4: Pt to asc/desc 1 step with SPC and SBA Patient's Goals
--- NOTE | 2018-06-12 09:43 | NUR ---
Occupational Therapy Impression Initial OT/PT evaluation. Independent bed mobility. Independent LB dressing. SBA ambulation in hallway with cane. SpO2 WNL on 1L. Pt reports feeling much improved, spouse reports pt is at baseline function. No further OT visits planned. Pt and spouse decline concerns with discharge home and further needs. Spouse is aware of resources in their local area should needs arise. Pt ready for discharge when medically appropriate. Occupational Therapy Goals Patient's Goal
--- NOTE | 2018-06-12 10:53 | Antimicrobial Stewardship ---
Antimicrobial Stewardship Empiricly appropriate: Yes (azithromycin + Ceftriaxone) Significant PMH: Yes (Stroke, DM2, R-hemiplagia, expressive aphasia) Support empiric regimen: Yes Approriate Cultures done: Yes Determine cumulative duration: Day 2 of treatment, started 06/11 Determine standard duration: 7 days total Comment 67 yo M with a PMH of stroke, DM2, R hemiplegia, expressive aphasia who presented to the Ed with weakness and fever. Pt from [place], here visit ing family. Tmax 103.1-->99.7 WBC 13.8-->13.6 Neuts 88% to 72% Scr 1 CTA patchy opacity in the lingula Blood Cx x 2 - NGTD Started on Azithromycin 500mg IV daily, Ceftriaxone 1g IV q24h, continue with treatment, today is day 2 of a minimum of 7 days. Will watch cultures. Consider IV to PO antibiotics once afebrile and WBC wnl. Kaela Morales, PharmD, OP KAELA MORALES Jun 12, 2018 10:53
[2018-06-12 11:00] VITALS: BP 121/75
[2018-06-12 13:22] LABS: PLATELET COUNT, AUTOMATED 83 K/uL (150-450)
[2018-06-12] MEDS ORDERED: CEF300 PO (13:52)
[2018-06-12] MEDS ORDERED: AZIT-1 PO (13:52)
--- NOTE | 2018-06-12 14:00 | Hospitalist Depart ---
Discharge Summary Reason for Hosp/Final Diag: (1) Pneumonia Status: Acute Hospital Course & Plan: He was admitted to the medical floor. He was given aggressive fluid resuscitation. He was placed on treatment with azithromycin and ceftriaxone. Blood cultures show no growth. Not wheezing so steroids and nebulizers were not ordered. He is maintaining room air saturations. Not on O2 at home. He will be transitioned to oral Azithromycin and Omnicef. (2) Seizure disorder as sequela of cerebrovascular accident Status: Chronic Hospital Course & Plan: Continue Keppra 1500mg bid. (3) Type II diabetes mellitus Status: Chronic Hospital Course & Plan: Hold metformin secondary to CT scan with contrast. Continue Januvia 100mg daily. He was given SSI level 1 prn. Diabetic diet. (4) CVA, old, hemiparesis Status: Chronic Hospital Course & Plan: The patient had an embolic CVA in 2016. He is on a baby ASA for secondary prevention. He had a TIA in 2018 without sequelae. He is on atorvastatin as well. He has expressive aphasia but understands perfectly. He has R hemiparesis. (5) COPD (chronic obstructive pulmonary disease) Status: Chronic Hospital Course & Plan: Not on treatment currently. Quit smoking 30 years ago. (6) HTN (hypertension) Status: Chronic Hospital Course & Plan: Not currently on treatment. Departure Latest Vital Signs Vital Signs 06/12/18 06/12/18 08:34 11:00 Temp 98.5 Pulse 59 Resp 20 B/P (MAP) 121/75 (90) Pulse Ox 90 O2 Delivery Room Air O2 Flow Rate 1.0 Weight (Pounds): 165 Result Diagram: 06/12/18 1315 06/12/18 0527 Condition: Improved Discharge: Home, Self Care Discharge Instructions Home Meds Active Scripts Azithromycin (ZITHROMAX) 250 Mg Tablet, 1 TAB PO QDAY, #3 TAB Prov:PERCY HOWELL [facility] 06/12/18 Cefdinir 300 Mg Cap (OMNICEF 300 MG CAP (OR EQUIV)) 300 Mg Cap, 300 MG PO BID for 5 Days, #10 CAP Prov:PERCY HOWELL [facility] 06/12/18 Reported Medications Aspirin (ASPIR 81) 81 Mg Tablet.dr, 81 MG PO QDAY, TAB 06/11/18 Multivitamin (MULTIVITAMINS) 1 Each Capsule, 1 EACH PO DAILY, CAPSULE 06/11/18 Cholecalciferol (Vitamin D3) (Vitamin D) 50,000 Unit Capsule, 1 INTLU PO QWEEK 06/11/18 Metformin Hcl (METFORMIN HCL) 1,000 Mg Tablet, 1 TAB PO BID, TAB 06/11/18 Gabapentin (GABAPENTIN) 100 Mg Capsule, 100 MG PO BID, CAPSULE 06/11/18 Levetiracetam (LEVETIRACETAM) 500 Mg Tab.er.24h, 1500 MG PO BID, TAB 06/11/18 Atorvastatin Calcium (LIPITOR) 40 Mg Tablet, 1 TAB PO QDAY, TAB 12/31/15 Sitagliptin Phosphate (JANUVIA) 100 Mg Tablet, 100 MG PO QDAY 12/31/15 Discontinued Reported Medications Gabapentin (GABAPENTIN) 300 Mg Capsule, 100 MG PO BID, CAPSULE 06/11/18 Levetiracetam (LEVETIRACETAM) 1,000 Mg Tablet, 1500 MG PO BID, TAB 06/11/18 Oxycodone Hcl/Acetaminophen (PERCOCET 5-325 MG TABLET) 1 Each Tablet, 1 EACH PO PRN for PAIN, #49 TAB 02/09/17 Diazepam (VALIUM) 5 Mg Tablet, 5 MG PO Q8H PRN for SPASMS, #25 TAB 02/09/17 Docusate Calcium (SURFAK) 240 Mg Capsule, 240 MG PO DAILY, #9 CAPSULE 02/09/17 Aspirin (ASPIRIN) 81 Mg Tab.chew, 81 MG PO QDAY, TAB.CHEW 02/03/17 Metformin Hcl (METFORMIN HCL) 1,000 Mg Tablet, 1 TAB PO BID, TAB 12/30/15 Diet: Diabetic Activity: As Tolerated Special Instructions: Hold Metformin until Tuesday morning. Take antibiotics as prescribed until gone. Follow up with primary care provider in 2 weeks. Venous Thromboembolism Antithrombotics Is Pt On Any Antithrombotics?: Yes Problem Qualifiers (1) Pneumonia: Pneumonia type: due to unspecified organism Laterality: left Lung location: lower lobe of lung Qualified Codes: J18.1 - Lobar pneumonia, unspecified organism PERCY HOWELLP Jun 12, 2018 13:59
== END 2018-06-12 14:52 | disposition home or self-care (01) | DRG 194 ==
LOC: ER 00:57 → MED 03:44
PROVIDERS: ADMIT Internal Medicine; ATTEND Internal Medicine
DX: J18.1 Lobar pneumonia, unspecified organism (principal); I69.851 Hemiplegia and hemiparesis following other cerebrovascular disease affecting right dominant side; I69.898 Other sequelae of other cerebrovascular disease; I69.820 Aphasia following other cerebrovascular disease; E11.9 Type 2 diabetes mellitus without complications; I10 Essential (primary) hypertension; J44.9 Chronic obstructive pulmonary disease, unspecified; R09.02 Hypoxemia; Z87.891 Personal history of nicotine dependence; Z79.84 Long term (current) use of oral hypoglycemic drugs
CPT/HCPCS: 36415; 36416; 71045; 71275; 81001; 82040; 82247; 82310; 82374; 82435; 82565; 82947; 82948; 83605; 84075; 84132; 84155; 84295; 84450; 84460; 84520; 85025; 87040; 87502; 96361; 96365; 96368; 97161; 97165; 99285; J0456; J0696; J1650; J7030; J7050; Q9967